=== PATIENT | male | born 1980 | race African-American/Black ===

== ENCOUNTER 2017-03-17 19:01 | Inpatient (IN) | payer OTHER ==
[~2017-03-17] VITALS: Ht 180.3 cm; Wt 77.3 kg
[2017-03-17 19:23] LABS: PLATELET COUNT 248 x10^3mcL (130-400); RED CELL DISTRIBUTION WIDTH 15.4 % (11.5-14.5)
[2017-03-17 19:30] LABS: CALCIUM 9.2 mg/dL (8.5-10.1); CARBON DIOXIDE 28.9 mmol/L (21-32); CHLORIDE SERUM 103 mmol/L (98-107); CREATININE SERUM 0.9 mg/dL (0.7-1.3); GFR1 > 60 mL/min; GLUCOSE SERUM 97 mg/dL (74-106); POTASSIUM SERUM 3.7 mmol/L (3.5-5.1); SODIUM SERUM 141 mmol/L (136-145)
[2017-03-17 19:35] LABS: ALKALINE PHOSPHATASE 57 U/L (46-116); ALT/SGPT 18 U/L (16-63); AST/SGOT 17 U/L (15-37); BILIRUBIN TOTAL 0.6 mg/dL (0.20-1.00); TOTAL PROTEIN, SERUM 7.5 g/dL (6.4-8.2)
[2017-03-17] MEDS ORDERED: KEPPRA1000 M1 PO (20:56)
[2017-03-17 21:08] LABS: CHOLESTEROL/HDL RATIO 3.2
[2017-03-17 21:16] LABS: FREE T4 1.47 ng/dL (0.76-1.46); FREE THYROXINE INDEX 3.9 ug/dL (1.4-4.5); T4(THYROXINE) 10.8 ug/dL (4.7-13.3)
[2017-03-17 21:56] LABS: T3 TOTAL 1.4 ng/mL
[2017-03-17 22:03] VITALS: BP 106/77
[2017-03-18 05:49] VITALS: BP 90/54
[2017-03-18 09:05] VITALS: BP 101/64
[2017-03-18 13:20] VITALS: BP 115/72
[2017-03-18 17:57] VITALS: BP 110/69
[2017-03-18 22:09] VITALS: BP 105/68
[2017-03-19 06:16] VITALS: BP 105/58
[2017-03-19 06:51] LABS: BASOPHIL % 0.3 % (0-2); PLATELET COUNT 232 x10^3mcL (130-400)
[2017-03-19 06:58] LABS: CALCIUM 8.3 mg/dL (8.5-10.1); CARBON DIOXIDE 26.4 mmol/L (21-32); CHLORIDE SERUM 106 mmol/L (98-107); CREATININE SERUM 0.7 mg/dL (0.7-1.3); GFR1 > 60 mL/min; GLUCOSE SERUM 85 mg/dL (74-106); MAGNESIUM 2.2 mg/dL (1.8-2.4); PHOSPHOROUS 3.3 mg/dL (2.5-4.9); POTASSIUM SERUM 3.8 mmol/L (3.5-5.1); SODIUM SERUM 140 mmol/L (136-145)
[2017-03-19 07:08] LABS: RED CELL DISTRIBUTION WIDTH 15.3 % (11.5-14.5)
[2017-03-19 11:40] VITALS: BP 104/67
[2017-03-19 11:54] VITALS: BP 104/67
== END 2017-03-19 12:57 | disposition home or self-care (01) | DRG 53 ==
LOC: ED 19:01 → DU 20:41 → MU 03-18 18:04
PROVIDERS: Emergency Medicine; ADMIT Family Medicine
DX: G40.909 Epilepsy, unspecified, not intractable, without status epilepticus (principal); F34.1 Dysthymic disorder; F63.9 Impulse disorder, unspecified; Z68.23 Body mass index [BMI] 23.0-23.9, adult; Z87.820 Personal history of traumatic brain injury; F17.210 Nicotine dependence, cigarettes, uncomplicated
CPT/HCPCS: 80307; 83880; 84439; G0480; J1630; J2060; J7030; Q0092